=== PATIENT | male | born 1970 | race Caucasian/White ===

== ENCOUNTER 2018-03-17 10:19 | Emergency (ER) | payer BC ==
[2018-03-17 10:23] VITALS: BP 135/76; PULSE 63; TEMP 98.3; BMI 27.4
--- NOTE | 2018-03-17 10:25 | PDOC ---
History of Present Illness - General Chief Complaint: Cold Symptoms Stated Complaint: prod cough History Source: Patient Exam Limitations: No Limitations - History of Present Illness Initial Comments: 03/17/18 10:31 47-year-old male no past medical history here today complaining of cough for 2-1 /2 weeks. Cough has been productive of yellowish phlegm. Patient states he has been feeling chilled with subjective fevers denies any sick contacts no travel no leg swelling no chest pain no other complaints has been to urgent care a few times for this illness never had a chest x-ray thus far. No other current complaints did not take any medications prior to arrival he is an ex smoker quit 20 yrs ago. Past History - Past Medical History Allergies/Adverse Reactions: Allergies Allergy/AdvReac Type Severity Reaction Status Date / Time No Known Allergies Allergy Verified 03/17/18 10:19 Home Medications: Ambulatory Orders No Home Medications 0 dose .ROUTE UTDICT 08/11/12 Albuterol Sulfate Inhaler - [Ventolin HFA Inhaler -] 2 inh IH Q4H PRN #1 inh MDD 6 03/17/18 Levofloxacin [Levaquin] 750 mg PO DAILY #7 tablet 03/17/18 COPD: No Other medical history: hemachromatosis - Suicide/Smoking/Psychosocial Hx Smoking Status: No Smoking History: Former smoker Have you smoked in the past 12 months: No Number of Cigarettes Smoked Daily: 0 If you are a former smoker, when did you quit?: 20 Information on smoking cessation initiated: No Hx Alcohol Use: Yes (once month) Drug/Substance Use Hx: No Substance Use Type: None Hx Substance Use Treatment: No Review of Systems - Review of Systems Constitutional: Yes: Chills, Fever. No: Diaphoresis Respiratory: Yes: Cough, Productive cough Cardiac (ROS): No: Chest Pain, Edema : No: Burning, Dysuria Musculoskeletal: No: Back Pain, Muscle Weakness Integumentary: No: Bruising All Other Systems: Reviewed and Negative *Physical Exam - Vital Signs Last Vital Signs Temp Pulse Resp BP Pulse Ox 98.3 F 63 18 135/76 98 03/17/18 10:19 03/17/18 10:19 03/17/18 10:19 03/17/18 10:19 03/17/18 10:19 - Physical Exam Comments: 03/17/18 10:33 Patient is awake alert no acute distress lungs are with expiratory rhonchi when coughing otherwise clear normal effort. Heart is regular without any murmurs rubs or gallops abdomen is soft and nontender skin is warm and dry no rash neurologically patient is alert and oriented 3 extremities are nontender without edema Moderate Sedation - Procedure Monitoring Vital Signs: Procedure Monitoring Vital Signs Temperature 98.3 F 03/17/18 10:19 Pulse Rate 63 03/17/18 10:19 Respiratory Rate 18 03/17/18 10:19 Blood Pressure 135/76 03/17/18 10:19 O2 Sat by Pulse Oximetry (%) 98 03/17/18 10:19 ED Treatment Course - RADIOLOGY Chest X-Ray Result: Pneumonia Medical Decision Making - Medical Decision Making 03/17/18 10:34 47-year-old previously healthy male here with a cough for 2 weeks. Differential includes bronchitis acute on chronic exacerbation, influenza, other viral infection, pneumonia. Plan DuoNeb and chest x-ray reassess following 03/17/18 11:33 pt afebrile in ED. cxr with right lung base retrocardiac window infiltrate. will treat with outpt [facility], fu pcp. warning signs to return given. 03/17/18 12:38 d/w pt regarding inpatient obs vs. dc. would like to go home. feeling better after second neb. given rx for levaquin and alb inhaler. schedul fu with res clinic at [facility]. instructed to come back immediately for any worsening sxs. afebrile here. nml pulse ox. nml vs. *DC/Admit/Observation/Transfer Diagnosis at time of Disposition: Pneumonia - Discharge Dispostion Disposition: HOME Condition at time of disposition: Stable Decision to Admit order: No - Prescriptions Prescriptions: Albuterol Sulfate Inhaler - [Ventolin HFA Inhaler -] 2 inh IH Q4H PRN #1 inh MDD 6 PRN Reason: Cough Levofloxacin [Levaquin] 750 mg PO DAILY #7 tablet - Referrals Referrals: [facility] [place] [Provider Group] - 2 Days (outpatient pneumonia 48 - 73 hr followup) - Patient Instructions Printed Discharge Instructions: Pneumonia-Adult, Acute Bronchitis Additional Instructions: Your chest xray shows a pneumonia. you should take levaquin 750 mg daily for one week. use inhaler 2 puffs every 4 hrs as needed for wheezing or cough. return for worsening shortness of breath, vomiting, fever not relieved by tylenol or ibuprofen. or any concerns. you need to follow up with your primary doctor within 48 hrs. If you do not have one you should follow up with our clinic they will call you to schedule. . you can take tylenol 500 mg every 8 hrs as needed for your fever. - Post Discharge Activity
[2018-03-17] MEDS ORDERED: ALBUTEROL SO4 2.5/IPRATROPIUM 0.5 INH SOL 3 ML VIAL.NEB. NEB ONE ×5 (10:31→11:55)
[2018-03-17] MEDS ORDERED: levoFLOXacin 750 MG TABLET PO ONE (11:48)
[2018-03-18] MEDS ORDERED: levoFLOXacin 750 MG TABLET PO SCH (10:00)
[2018-03-18] MEDS ORDERED: levoFLOXacin 750 MG TABLET PO ONE (11:43)
== END 2018-03-17 12:43 | disposition home or self-care (01) ==
LOC: FER 10:19
PROC: 3E0F7GC Introduction of Other Therapeutic Substance into Respiratory Tract, Via Natural or Artificial Opening (ICD-10-PCS; principal; 2018-03-17)
DX: J18.9 Pneumonia, unspecified organism (principal)
CPT/HCPCS: 71046-TC-FY; 99281-25

== ENCOUNTER 2018-05-25 08:04 | Emergency (ER) | payer BC ==
[2018-05-25 08:07] VITALS: TEMP 97.9; BMI 28.3
--- NOTE | 2018-05-25 08:15 | PDOC ---
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 , able to do heavy lifting , running upstairs without any discomfort at work ) Exam Limitations: No Limitations - History of Present Illness Severity: mild, moderate Associated Symptoms: reports: denies symptoms Past History - Travel Traveled outside of the country in the last 30 days: No Close contact w/someone who was outside of country & ill: No - Past Medical History Allergies/Adverse Reactions: Allergies Allergy/AdvReac Type Severity Reaction Status Date / Time No Known Allergies Allergy Verified 05/25/18 08:05 Home Medications: Ambulatory Orders NK [No Known Home Medication] 05/25/18 COPD: No Other medical history: Hemochromatosis - Family Disease History Family Disease History: CA: Father (brain CA) - Suicide/Smoking/Psychosocial Hx Smoking Status: No Smoking History: Former smoker Have you smoked in the past 12 months: No Number of Cigarettes Smoked Daily: 0 If you are a former smoker, when did you quit?: 20 Hx Alcohol Use: Yes (once month) Drug/Substance Use Hx: No Substance Use Type: None Hx Substance Use Treatment: No Review of Systems - Review of Systems Able to Perform ROS?: No Is the patient limited Belarusian proficient: No Constitutional: No: Symptoms Reported, See HPI, Chills, Diaphoresis, Fever, Loss of Appetite, Malaise, Night Sweats, Weakness, Weight Stable, Unintentional Wgt. Loss, Unexplained wgt Loss, Other HEENTM: No: Symptoms Reported, See HPI, Eye Pain, Blurred Vision, Tearing, Recent change in vision, Double Vision, Cataracts, Ear Pain, Ocular Prothesis, Ear Discharge, Nose Pain, Nose Congestion, Tinnitus, Nose Bleeding, Hearing Loss , Throat Pain, Throat Swelling, Mouth Pain, Dental Problems, Difficulty Swallowing, Mouth Swelling, Other Respiratory: No: Symptoms reported, See HPI, Cough, Orthopnea, Shortness of Breath, SOB with Exertion, SOB at Rest, Stridor, Wheezing, Productive cough, Hemoptysis, Other Cardiac (ROS): Yes: See HPI, Chest Pain : No: Symptoms Reported, See HPI, Burning, Dysuria, Discharge, Frequency, Flank Pain, Hematuria, Incontinence, Pain, Urgency, Testicular Mass, Testicular Swelling, Lesions, Testicular Pain, Other Musculoskeletal: No: Symptoms Reported, See HPI, Back Pain, Gout, Joint Pain, Joint Swelling, Muscle Pain, Muscle Weakness, Neck Pain, Joint Stiffness, Other Integumentary: No: Symptoms Reported, See HPI, Bruising, Change in Color, Change in Hair/Nails, Dryness, Erythema, Flushing, Lesions, Lumps, Pallor, Pruritus, Rash, Sweating, Other Neurological: No: Symptoms reported, See HPI, Headache, Numbness, Paresthesia, Pre-Existing Deficit, Seizure, Tingling, Tremors, Weakness, Unsteady Gait, Ataxia, Dizziness, Other Psychiatric: No: Anxiety, Depression, Frequent Crying, Stressors, Sleep Pattern Change, Emotional Problems, Mood Swings, Change in Appetite, Other All Other Systems: Reviewed and Negative *Physical Exam - Physical Exam General Appearance: Yes: Nourished, Appropriately Dressed, Thin. No: Apparent Distress HEENT: positive: GERARD Neck: positive: Trachea midline, Normal Thyroid, Supple. negative: Carotid bruit Respiratory/Chest: positive: Lungs Clear, Normal Breath Sounds. negative: Chest Tender Cardiovascular: positive: Regular Rhythm, Bradycardia Gastrointestinal/Abdominal: positive: Normal Bowel Sounds, Soft. negative: Tender Musculoskeletal: positive: Normal Inspection Extremity: positive: Normal Capillary Refill. negative: Pedal Edema, Swelling, Calf Tenderness Integumentary: positive: Normal Color Neurologic: positive: Fully Oriented, Alert, Normal Mood/Affect Heart Score/ECG Review - History History: Slightly suspicious - Electrocardiogram EKG: Normal - Age Age: 45-65 - Risk Factors Based on the list above the patient has:: No risk factors known - ECG Intrepretation Rhythm: Regular Rhythm - Hye Hye: Normal - P and DC Delta Wave(s) Present: No WPW: No - ST and T Early Repolarization: No Non Specific ST-T Wave changes: No - ECG Impressions Normal ECG: Yes Non-specific ST Elevation: No Ischemic Changes: No Bradycardia: Yes ED Treatment Course - LABORATORY CBC & Chemistry Diagram: 05/25/18 08:17 05/25/18 08:17 - Consult/PCP Time Called: 10:15 (Called Dr Pepper [facility]) Medical Decision Making - Critical Care Time Total Critical Care Time (minutes): 30 Critical Care Statement: The care of this patient involved high complexity decision making to prevent further life threatening deterioration of the patient 's condition and/or to evaluate & treat vital organ system(s) failure or risk of failure. 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 Eid cardiology. Return to the emergency department for any severe worsening symptoms or for any concerns. - Post Discharge Activity
[2018-05-25] MEDS ORDERED: ASPIRIN 81 MG CHEWABLE TABLETS PO ONE (08:18)
[2018-05-25] MEDS ORDERED: ASPIRIN 81 MG CHEWABLE TABLETS ONE (08:37)
[2018-05-25 09:02] LABS: BASO % 0.6 % (0-2.0); EOS % 3.7 % (0-4.5); HEMATOCRIT 42.7 % (35.4-49); HEMOGLOBIN 14.1 GM/dl (11.7-16.9); LYMPH % 21.3 % (8-40); MCH 30.6 pg (25.7-33.7); MCHC 33.1 g/dl (32.0-35.9); MEAN CELL VOLUME 92.4 fl (80-96); MEAN PLT VOLUME 7.2 fl (7.5-11.1); MONO % 9.1 % (3.8-10.2); NEUT % 65.3 % (42.8-82.8); PLATELET COUNT 266 K/MM3 (134-434); RBC 4.62 M/mm3 (4.00-5.60); RDW 12.6 % (11.9-15.9); WHITE BLOOD COUNT 4.8 K/mm3 (4.0-10.8)
[2018-05-25 09:03] LABS: INR 1.06 (0.82-1.09); PROTHROMBIN TIME (PATIENT) 11.8 SEC (10.2-13.0)
[2018-05-25 09:06] LABS: ALBUMIN 4.1 g/dl (3.4-5.0); ALK PHOS 60 U/L (45-117); ANION GAP 7 MMOL/L (8-16); BILIRUBIN,TOTAL 1.1 mg/dl (0.2-1); BLOOD UREA NITROGEN 15 mg/dl (7-18); CALCIUM 8.9 mg/dl (8.5-10); CHLORIDE 105 mmol/L (98-107); CO2 25 mmol/L (21-32); CREATININE 0.8 mg/dl (0.55-1.3); GLUCOSE,RANDOM 101 mg/dl (74-106); POTASSIUM 4.2 mmol/L (3.5-5.1); SGOT/AST 23 U/L (15-37); SGPT/ALT 22 U/L (13-61); SODIUM 137 mmol/L (136-145); TOT PROT 6.9 g/dl (6.4-8.2)
--- NOTE | 2018-05-25 11:02 | EKG ---
Test Reason : Blood Pressure : / mmHG Vent. Rate : 051 BPM Atrial Rate : 051 BPM P-R Int : 148 ms QRS Dur : 090 ms QT Int : 480 ms P-R-T Axes : 069 079 052 degrees QTc Int : 442 ms SINUS BRADYCARDIA OTHERWISE NORMAL ECG NO PREVIOUS ECGS AVAILABLE Confirmed by ALFRED GREENE, SUMIT ([id number]) on 05/25/2018 11:02:05 AM Referred By: KRISTINA EAST Confirmed By:SUMIT SIMON MD
[2018-05-25 13:42] VITALS: BP 110/70; PULSE 62
--- NOTE | 2018-05-25 13:43 | PDOC ---
*Physical Exam - Vital Signs Last Vital Signs Temp Pulse Resp BP Pulse Ox 97.9 F 61 19 110/75 99 05/25/18 08:05 05/25/18 12:22 05/25/18 12:22 05/25/18 12:22 05/25/18 12:22 Heart Score/ECG Review - History History: Slightly suspicious - Electrocardiogram EKG: Normal - Age Age: 45-65 - Risk Factors Based on the list above the patient has:: No risk factors known - Troponin Troponin: </= normal limit - Score Heart Score - Total: 1 ED Treatment Course - LABORATORY CBC & Chemistry Diagram: 05/25/18 08:17 05/25/18 08:17 - ADDITIONAL ORDERS Additional order review: Laboratory Results 05/25/18 05/25/18 05/25/18 12:06 08:17 08:17 PT with INR INR Sodium 137 Potassium 4.2 Chloride 105 Carbon Dioxide 25 Anion Gap 7 L BUN 15 Creatinine 0.8 Creat Clearance w eGFR 103.62 Random Glucose 101 Calcium 8.9 Total Bilirubin 1.1 H AST 23 ALT 22 Alkaline Phosphatase 60 Troponin I < 0.03 < 0.03 Total Protein 6.9 Albumin 4.1 05/25/18 08:17 PT with INR 11.8 INR 1.06 Sodium Potassium Chloride Carbon Dioxide Anion Gap BUN Creatinine Creat Clearance w eGFR Random Glucose Calcium Total Bilirubin AST ALT Alkaline Phosphatase Troponin I Total Protein Albumin 05/25/18 08:17 RBC 4.62 MCV 92.4 MCHC 33.1 RDW 12.6 MPV 7.2 L Neutrophils % 65.3 Lymphocytes % 21.3 Monocytes % 9.1 Eosinophils % 3.7 Basophils % 0.6 - Medications Given in the ED: ED Medications Discontinued Medications Generic Name Dose Route Start Last Admin Trade Name Freq PRN Reason Stop Dose Admin Aspirin 162 mg 05/25/18 08:18 05/25/18 08:38 Asa - PO 05/25/18 08:19 162 mg ONCE ONE Administration - Consult/PCP Time Called: 10:15 (Called Dr [facility]) Medical Decision Making - Medical Decision Making 05/25/18 13:40 Atypical chest discomfort. EKG demonstrates sinus rhythm [address] elevations or T-wave inversions Interpreted by me Troponin negative 2 Very low risk chest pain follow-up outpatient with cardiology Findings, the need for follow-up and strict return instructions discussed with patient. *DC/Admit/Observation/Transfer Diagnosis at time of Disposition: Chest pain at rest - Discharge Dispostion Disposition: HOME Condition at time of disposition: Stable Decision to Admit order: No - Referrals Referrals: Justo Eid MD [Staff Physician] - - Patient Instructions Printed Discharge Instructions: DI for Atypical Chest Pain Additional Instructions: Follow-up with Dr. Eid cardiology. Return to the emergency department for any severe worsening symptoms or for any concerns. - Post Discharge Activity
== END 2018-05-25 13:55 | disposition home or self-care (01) ==
LOC: FER 08:04
DX: R07.9 Chest pain, unspecified (principal); Z87.891 Personal history of nicotine dependence; E83.119 Hemochromatosis, unspecified
CPT/HCPCS: 36415; 71045-TC-FY; 71250-TC; 80053; 84484; 85025; 85610; 93005; 99284-25